=== PATIENT | female | born 1955 | race Caucasian/White ===

== ENCOUNTER → 2018-12-06 | Outpatient (CLI) | payer OTHER | LOC: RAD 12:42 | DX: J98.4 Other disorders of lung (principal) ==

== ENCOUNTER → 2021-04-15 | Outpatient (CLI) | payer OTHER | LOC: RAD 12:06 | PROVIDERS: ATTEND Internal Medicine Pulmonary Disease | DX: J45.40 Moderate persistent asthma, uncomplicated (principal); R06.02 Shortness of breath ==